=== PATIENT | male | born 1995 | race African-American/Black ===

== ENCOUNTER 2025-01-15 06:52 | Outpatient (REF) | payer OTHER, SELFPAY ==
--- NOTE | ~2025-01-15 | US_ITS ---
CLINICAL HISTORY: LEFT KIDNEY PAIN, R O STONE, HYDRO US retroperitoneum with color Doppler Comparison: None Findings: Right kidney normal size and echotexture, 10.5 cm length. No hydronephrosis. Normal color flow. No nephrolithiasis. No hydronephrosis. Left kidney normal size and echotexture, 10.1 cm in length. No hydronephrosis. Normal color flow. No nephrolithiasis. No hydronephrosis. Urinary bladder is unremarkable. Prevoid volume 525.0 mL. Postvoid volume 42.4 mL. Ureteral jets are visualized bilaterally Prostate measures 4.3 x 2.8 x 3.8 cm Impression: 1. Elevated postvoid residual volume within the urinary bladder. 2. Prostate measuring in at 42.4 mL 3. Normal kidneys. This document has been electronically signed by: Brandon Rowan MD on 01/16/2025 07:52:00
== END 2025-01-15 06:53 | disposition home or self-care (01) ==
LOC: HO.UMASIMG 06:52
PROVIDERS: Visit Provider Family Medicine
DX: R30.0 Dysuria (principal); R10.9 Unspecified abdominal pain
CPT/HCPCS: 76770

== ENCOUNTER → 2025-01-15 10:00 | Outpatient (BNV) | payer OTHER, SELFPAY | PROVIDERS: Visit Provider Radiology Diagnostic Radiology | DX: R39.14 Feeling of incomplete bladder emptying (principal) | CPT/HCPCS: 76770 ==